=== PATIENT | male | born 2000 | race African-American/Black ===

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

== ENCOUNTER 2019-03-29 11:57 | Emergency (ER) | payer MEDICAID ==
[~2019-03-29] VITALS: Ht 182.9 cm; Wt 113.6 kg
[2019-03-29] MEDS ORDERED: IBUPROFEN 800 MG TABLET PO ONE (15:30)
[2019-03-29] MEDS ORDERED: DEXAMETHASONE 4 MG TABLET PO ONE (15:30)
[2019-03-29 15:56] VITALS: BP 129/67
== END 2019-03-29 16:03 | disposition home or self-care (01) ==
LOC: EMS 11:58
DX: J02.9 Acute pharyngitis, unspecified (principal); R03.0 Elevated blood-pressure reading, without diagnosis of hypertension
CPT/HCPCS: 36415; 86308; 87430; 99283; J8540

== ENCOUNTER 2019-04-01 15:33 | Emergency (ER) | payer MEDICAID ==
[~2019-04-01] VITALS: Ht 182.9 cm; Wt 113.1 kg
[2019-04-01 15:37] VITALS: BP 133/79
[2019-04-01] MEDS ORDERED: [UNRECOGNIZED DRUG - REMARK] PO (15:39)
== END 2019-04-01 17:34 | disposition left against medical advice (07) ==
LOC: EMS 15:34
DX: J02.9 Acute pharyngitis, unspecified (principal); Z53.21 Procedure and treatment not carried out due to patient leaving prior to being seen by health care provider

== ENCOUNTER 2019-09-03 18:03 | Emergency (ER) | payer SELFPAY ==
[~2019-09-03] VITALS: Ht 182.9 cm; Wt 100.0 kg
[~2019-09-03 18:03] MED LIST: [UNRECOGNIZED DRUG - REMARK] PO
[2019-09-03] MEDS ORDERED: BACITRACIN 0.9 GM PACKET OINTMENT TP ONE (19:45)
[2019-09-03] MEDS ORDERED: PERTUSS(ACELL),DIPH,TET VAC/PF 0.5 ML VIAL IM ONE (19:45)
[2019-09-03] MEDS ORDERED: AMOX TR/POT CLAV 875 MG/125 MG TABLET PO ONE (19:45)
[2019-09-03 19:52] VITALS: BP 110/69
== END 2019-09-03 19:57 | disposition home or self-care (01) ==
LOC: EMS 18:03
DX: S51.851A Open bite of right forearm, initial encounter (principal); W50.3XXA Accidental bite by another person, initial encounter; Y93.89 Activity, other specified; Y92.89 Other specified places as the place of occurrence of the external cause; Y99.8 Other external cause status
CPT/HCPCS: 90471; 90715

== ENCOUNTER 2022-04-01 15:54 | Emergency (ER) | payer MEDICAID ==
[~2022-04-01] VITALS: Ht 182.9 cm; Wt 106.8 kg
[2022-04-01] MEDS ORDERED: SODIUM CHLORIDE 0.9% 1,000 ML IV ONE (16:15)
[2022-04-01 16:36] LABS: BASOPHILS % (AUTO) 0.4 % (0.0-2.0); EOSINOPHILS % (AUTO) 1.5 % (1.0-6.0); HEMATOCRIT 38.5 % (41-53); HEMOGLOBIN 11.9 g/dL (13.5-17.5); LYMPHOCYTES # (AUTO) 1.4 K/uL (1.0-4.8); LYMPHOCYTES % (AUTO) 41.2 % (22.0-44.0); MEAN CORPUSCULAR HEMOGLOBIN 21.2 pg (26.0-34.0); MEAN CORPUSCULAR VOLUME 68 fL (80-100); MONOCYTES # (AUTO) 0.3 K/uL (0.1-1.0); MONOCYTES % (AUTO) 9.8 % (2.0-9.0); NEUTROPHILS # (AUTO) 1.6 K/uL (1.8-7.7); NEUTROPHILS % (AUTO) 47.1 % (40.0-70.0); PLATELET COUNT (AUTO) 189 K/uL (150-450); RED BLOOD CELL COUNT(AUTO) 5.64 MIL/uL (4.50-5.90); RED CELL DISTRIBUTION WIDTH 14.7 % (11.5-14.5)
[2022-04-01 16:50] LABS: ANION GAP 4 mmol/L (8-16); CALCIUM, TOTAL 8.8 mg/dL (8.8-10.5); CARBON DIOXIDE 33 mmol/L (22-29); CHLORIDE 104 mmol/L (98-107); CREATININE 0.93 mg/dL (0.60-1.30); GLUCOSE,RANDOM 104 mg/dL (70-110); POTASSIUM 3.9 mmol/L (3.5-5.1); SODIUM SERUM 141 mmol/L (136-145); UREA NITROGEN, BLOOD 8 mg/dL (7-18)
[2022-04-01 16:51] LABS: GLOMERULAR FILTR. RATE CALC > 60 mL/min (>60)
[2022-04-01 16:55] LABS: AMPHET/METH SCREEN,URINE NEGATIVE (NEGATIVE); BARBITURATE SCREEN, URINE NEGATIVE (NEGATIVE); BENZODIAZEPINES SCREEN,URINE NEGATIVE (NEGATIVE); CANNABINOID SCREEN,URINE POSITIVE (NEGATIVE); COCAINE SCREEN,URINE NEGATIVE (NEGATIVE); METHADONE SCREEN, URINE NEGATIVE (NEGATIVE); OPIATE SCREEN,URINE NEGATIVE (NEGATIVE)
[2022-04-01 16:56] LABS: PHENCYCLIDINE SCREEN,URINE NEGATIVE (NEGATIVE)
[2022-04-01 17:08] LABS: B-TYPE NATRIURETIC PEPTIDE 14 pg/mL (0-100)
[2022-04-01 17:15] LABS: ALANINE AMINOTRANSFERASE 30 U/L (12-78); ALBUMIN 4.4 g/dL (3.4-5.0); ALKALINE PHOSPHATASE 73 U/L (46-116); ASPARTATE AMINOTRANSFERASE 16 U/L (15-37); BILIRUBIN,TOTAL 0.4 mg/dL (0.1-1.0); CREATINE KINASE, TOTAL ONLY 76 U/L (39-308); TOTAL PROTEIN, SERUM 8.6 g/dL (6.4-8.2)
[2022-04-01 17:31] VITALS: BP 124/82
== END 2022-04-01 18:30 | disposition home or self-care (01) ==
LOC: EMS 15:57
DX: R07.89 Other chest pain (principal); F12.90 Cannabis use, unspecified, uncomplicated
CPT/HCPCS: 99285; 96360; 71045; 80053; 82550; 83880; 84484; 85025; 36415; 93005; 80307 ×2; G0480; J7030